=== PATIENT | female | born 1960 | race Caucasian/White ===

== ENCOUNTER 2017-12-09 10:01 | Day surgery (SDC) | payer OTHER ==
[2017-12-01 14:11] LABS: BASOPHILS % (AUTO) 0.4 % (0-1); EOSINOPHILS # (AUTO) 0.1 X10'3 (0-0.9); EOSINOPHILS % (AUTO) 1.1 % (0-6); LYMPHOCYTES # (AUTO) 2.3 X10'3 (1.1-4.8); LYMPHOCYTES % (AUTO) 41.8 % (21-51); MEAN CORPUSCULAR HEMOGLOBIN 31.3 PG (27.0-31.0); MEAN CORPUSCULAR HGB CONC 34.4 % (33.0-36.5); MEAN PLATELET VOLUME 7.6 FL (7.4-10.4); MONOCYTES # (AUTO) 0.5 X10'3 (0-0.9); MONOCYTES % (AUTO) 9.1 % (2-12); NEUTROPHILS # (AUTO) 2.6 X10'3 (1.8-7.7); NEUTROPHILS % (AUTO) 47.6 % (42-75); PRE OP HEMATOCRIT 36.5 % (35.0-45.0); PRE OP HEMOGLOBIN 12.6 g/dL (12.0-16.0); PRE OP PLATELET COUNT 329 X10'3 (140-440); RED BLOOD COUNT 4.01 X10'6 (4.20-5.60); RED CELL DISTRIBUTION WIDTH 12.1 % (11.5-14.5)
[2017-12-01 14:26] LABS: ALBUMIN 3.9 G/DL (3.4-5.0); ALBUMIN/GLOBULIN RATIO 1.1 (1.1-1.5); ALKALINE PHOSPHATASE 71 IU/L (46-116); BLOOD UREA NITROGEN 19 MG/DL (7-18); BUN/CREATININE RATIO 26.4 (6.6-38.0); CALCIUM 9.2 MG/DL (8.5-10.1); CHLORIDE 100 MMOL/L (99-107); CREATININE 0.72 MG/DL (0.40-0.90); PRE OP ALT 25 U/L (30-65); PRE OP ANION GAP 6 (8-16); PRE OP AST 16 U/L (10-37); PRE OP BILIRUB, TOTAL 0.2 MG/DL (0.0-1.0); PRE OP GLUCOSE 103 MG/DL (70-104); PRE OP POTASSIUM 4.5 MMOL/L (3.4-5.1); PRE OP SODIUM 138 MMOL/L (135-145); TOTAL CARBON DIOXIDE 31.8 MMOL/L (24-32); TOTAL PROTEIN 7.3 G/DL (6.4-8.2); eGFR 83 ML/MIN
[~2017-12-09] VITALS: Ht 152.4 cm; Wt 42.6 kg
[2017-12-09] VITALS (16 sets, daily range): BP systolic 105–137; BP diastolic 60–94
[~2017-12-09 10:01] MED LIST: CARI-1 PO; DULO30CA51 PO; ESZO3TAB44 PO; FENT-91 TOP; HYDR-3972 PO; TRAZ-146 PO; ceFAZolin inj. 2,000 MG in normal saline 100ml IV soln 100 ML IV ONE; famotidine 20mg tablet PO ONE; ringers solution, lacted 1,000 ML IV SCH
[2017-12-09] MEDS ORDERED: ROPIVAcaine 0.5% (5mg/ml) 30ml vial ONE ×2 (12:15→12:47)
[2017-12-09] MEDS ORDERED: ceFAZolin 1000mg inj ONE (12:15)
[2017-12-09] MEDS ORDERED: MIDAZolam 1mg/ml 10ml vial ONE (12:40)
[2017-12-09] MEDS ORDERED: fentaNYL/PF 50MCG/1 ML 2ML syringe ONE (12:40)
[2017-12-09] MEDS ORDERED: BUPIVAcaine/PF 7.5mg/ml (0.75%) 10ml vial ONE (12:41)
[2017-12-09] MEDS ORDERED: ringers solution, lacted 1,000 ML IV SCH (13:53)
[2017-12-09] MEDS ORDERED: meperidine/PF 25mg/ml syringe IV PRN ×3 (13:55)
[2017-12-09] MEDS ORDERED: morphine 4 MG/ML inj SYRINge IV PRN ×2 (13:55)
[2017-12-09] MEDS ORDERED: ondansetron/PF 4mg/2ml inj IV PRN (13:55)
[2017-12-09] MEDS ORDERED: proCHLORperazine 10 MG/2 ml inj IV PRN (13:55)
== END 2017-12-09 20:10 | disposition home or self-care (01) ==
LOC: PAS 10:01 → ORTHO 4S 17:28 → PAS 20:10
PROVIDERS: ATTEND Orthopaedic Surgery
DX: S83.511A Sprain of anterior cruciate ligament of right knee, initial encounter (principal); S83.241A Other tear of medial meniscus, current injury, right knee, initial encounter; S83.281A Other tear of lateral meniscus, current injury, right knee, initial encounter; Z98.890 Other specified postprocedural states; F32.89 Other specified depressive episodes; G89.29 Other chronic pain; W01.0XXA Fall on same level from slipping, tripping and stumbling without subsequent striking against object, initial encounter; Y93.89 Activity, other specified; Y92.89 Other specified places as the place of occurrence of the external cause; Y99.8 Other external cause status
CPT/HCPCS: 29881; 29888; 36415; 80053; 85025; 93005; A6449; C1713; C1750; C1776; J0690; J2250; J2795; J3010; J3490; J7030; J7120; A7000

== ENCOUNTER 2019-07-01 12:47 | Emergency (ER) | payer BC, OTHER ==
[~2019-07-01] VITALS: Ht 154.9 cm; Wt 40.0 kg
[~2019-07-01 12:47] MED LIST changes: -CARI-1 PO; +CARI-433 PO; -DULO30CA51 PO; +DULO30CA52 PO; -FENT-91 TOP; +FENT1PAT10 TOP; -TRAZ-146 PO; +TRAZ-219 PO; -ceFAZolin inj. 2,000 MG in normal saline 100ml IV soln 100 ML IV ONE; -famotidine 20mg tablet PO ONE; -ringers solution, lacted 1,000 ML IV SCH
[2019-07-01 13:13] LABS: BASOPHILS % (AUTO) 0.3 % (0-1); EOSINOPHILS % (AUTO) 0 % (0-6); HEMATOCRIT 40.2 % (35.0-45.0); HEMOGLOBIN 13.8 g/dl (12.0-16.0); LYMPHOCYTES # (AUTO) 1.2 X10'3 (1.1-4.8); LYMPHOCYTES % (AUTO) 12.5 % (21-51); MEAN CORPUSCULAR HGB CONC 34.4 g/dL (33.0-36.5); MEAN CORPUSCULAR VOLUME 93.1 FL (78-98); MEAN PLATELET VOLUME 7.8 FL (7.4-10.4); MONOCYTES # (AUTO) 0.8 X10'3 (0-0.9); MONOCYTES % (AUTO) 8.2 % (2-12); NEUTROPHILS # (AUTO) 7.9 X10'3 (1.8-7.7); PLATELET COUNT 331 X10'3 (140-440); RED BLOOD COUNT 4.32 X10'6 (4.20-5.60); RED CELL DISTRIBUTION WIDTH 12.5 % (11.5-14.5)
[2019-07-01 13:28] LABS: ALANINE AMINOTRANSFERASE 47 U/L (12-78); ALBUMIN 4.6 G/DL (3.4-5.0); ALBUMIN/GLOBULIN RATIO 1.2 (1.1-1.5); ALKALINE PHOSPHATASE 72 IU/L (46-116); ANION GAP 13 (8-16); ASPARTATE AMINO TRANSFERASE 33 U/L (10-37); BILIRUBIN,TOTAL 0.7 MG/DL (0.1-1.0); BLOOD UREA NITROGEN 15 MG/DL (7-18); BUN/CREATININE RATIO 16.5 (6.6-38.0); CALCIUM 9.5 MG/DL (8.5-10.1); CHLORIDE 96 MMOL/L (99-107); CREATININE 0.91 MG/DL (0.40-0.90); GLUCOSE 130 MG/DL (70-104); LIPASE 111 U/L (73-393); SODIUM 137 MMOL/L (135-145); TOTAL CARBON DIOXIDE 28.4 MMOL/L (24-32); TOTAL PROTEIN 8.3 G/DL (6.4-8.2); eGFR 63 ML/MIN
[2019-07-01] MEDS ORDERED: haloperidol lactate 5mg/ml inj IM ONE (13:30)
[2019-07-01] MEDS ORDERED: ondansetron/PF 4mg/2ml inj IV ONE (13:30)
[2019-07-01] MEDS ORDERED: diphenhydrAMINE 50 mg/ml inj IV ONE (13:30)
[2019-07-01 13:33] LABS: POTASSIUM 2.9 MMOL/L (3.5-5.1)
[2019-07-01] MEDS ORDERED: potassium Cl 20 mEq/100mL bag IV ONE (13:35)
--- NOTE | 2019-07-01 14:09 | NUR ---
farheen paige [phone] call for a ride home
[2019-07-01] MEDS ORDERED: morphine 4 MG/ML inj SYRINge IV ONE (14:15)
[2019-07-01 15:21] LABS: COLOR,URINE YELLOW (Yellow); GLUCOSE, URINE NEGATIVE (Neg); KETONES,URINE TRACE mg/dl (Neg); LEUKOCYTE ESTERASE ,URINE NEGATIVE (Neg); NITRITES, URINE NEGATIVE (Neg); OCCULT BLOOD,URINE LARGE (Neg); PH,URINE 6.5 (4.8-8.0); PROTEIN,URINE 100 mg/dl (Neg); URINE HCG NEGATIVE (NEG); UROBILINOGEN,URINE 0.2 E.U/dL (0.2-1.0)
[2019-07-01 15:22] LABS: CLARITY,URINE SLIGHTLY CLOUDY (Clear); UA COLLECTION TYPE CLN CATCH MIDSTREAM
[2019-07-01 15:29] LABS: BACTERIA,URINE FEW /HPF (Neg); HYALINE CASTS 0-3 /LPF (NEGATIVE); MUCUS STRANDS FEW /LPF (Neg); RBC,URINE 20-50 /HPF (0-2); SQUAMOUS EPITHELIAL CELL,UR FEW /LPF (FEW); WBC,URINE 0-4 /HPF (0-4)
[2019-07-01] MEDS ORDERED: PROM12.512 PO (15:53)
[2019-07-01 16:17] VITALS: BP 132/81
[2019-07-01] MEDS ORDERED: capsaicin 0.025% 60gm cream TP SCH (20:00)
== END 2019-07-01 16:20 | disposition home or self-care (01) ==
LOC: ER 12:47
DX: K52.9 Noninfective gastroenteritis and colitis, unspecified (principal); G89.29 Other chronic pain; M54.5 Low back pain; F12.90 Cannabis use, unspecified, uncomplicated; Z98.890 Other specified postprocedural states; Z79.899 Other long term (current) drug therapy
CPT/HCPCS: 36415; 74176; 76700; 80053; 81001; 81025; 83690; 85025; 96361; 96372; 96374; 96375; 99284; J1200; J1630; J2270; J2405; J3480; 96365